=== PATIENT | female | born 1995 | race Two or more races ===

== ENCOUNTER 2024-10-04 18:11 | Emergency (ER) | payer OTHER, SELFPAY ==
[2024-10-04 18:49] VITALS: BP 127/84; PULSE 80; RESP 18; TEMP 36.6; O2SAT 99; BMI 32.0
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
== END 2024-10-04 19:27 | disposition home or self-care (01) ==
LOC: SERX 19:13
PROVIDERS: Emergency Provider Emergency Medicine
DX: S40.022A Contusion of left upper arm, initial encounter (principal); V89.2XXA Person injured in unspecified motor-vehicle accident, traffic, initial encounter
CPT/HCPCS: 99281